=== PATIENT | male | born 1980 | race Caucasian/White ===

== ENCOUNTER 2016-04-09 10:11 | Emergency (ER) | payer OTHER, BC ==
[~2016-04-09] VITALS: Ht 188 cm; Wt 97.5 kg
--- NOTE | 2016-04-09 11:16 | ED General ---
General Chief Complaint: Chest Wall/Rib Pain Stated Complaint: BACK PAIN Nursing Triage Note: PT REPORTS RIB PAIN SINCE SUNDAY WHILE WORKING AT [employer]. HE STATES ON HE WAS ADJUSTED AT THE CHIROPRACTOR WITH SOME RELIEF. HE STATES THAT HE HAD A "COUGHING FIT" YESTERDAY AND HAS INCREASED PAIN. PT STATES HE FEELS LIKE HE HAS RIBS OUT OF PLACE. Nursing Sepsis Screen: No Definite Risk Source of Information: Patient Exam Limitations: No Limitations History of Present Illness Time Seen by Provider: 11:15 Initial Comments 35-year-old male patient presents to the emergency department with complaints of rib pain beginning on Sunday. States he was suggested by his chiropractor with some improvement in symptoms. Yesterday had a "coughing fit" with increased left rib pain. Denies congestion, shortness of air, fever, back pain. Worse with movement. Timing/Duration: 4-5 Days, Constant Modifying Factors: worse with Movement, worse with Other (worse with a deep breath.) Allergies and Home Medications Allergies Coded Allergies: No Known Drug Allergies (Unverified , 04/09/16) Home Medications Hydrocodone/Acetaminophen 1 Each Tablet #20 1 EACH PO Q4H PRN PRN PAIN Prescribed by: POOJA CORRAL on 04/09/16 1151 Orphenadrine Citrate 100 Mg Tablet.er #10 100 MG PO BID PRN PRN SPASMS Prescribed by: POOJA CORRAL on 04/09/16 1151 Prednisone 20 Mg Tab #10 40 MG PO DAILY Prescribed by: POOJA CORRAL on 04/09/16 1151 Constitutional: No chills, No fever, No malaise Respiratory: see HPINo cough, No dyspnea on exertion, No hemoptysis, No phlegm , No short of breath, No stridor, No wheezing Cardiovascular: no symptoms reported Gastrointestinal: no symptoms reported Genitourinary: no symptoms reported Musculoskeletal: see HPI other (left lower rib pain) Skin: no symptoms reported Psychiatric/Neurological: No Symptoms Reported All Other Systems Reviewed Negative Unless Noted: Yes (Negative excepted noted.) Past Mymhllv-Gfydxj-Rlaqtf Hx Patient Social History Alcohol Use: Denies Use Recreational Drug Use: No Smoking Status: Never a Smoker Recent Foreign Travel: No Contact w/Someone Who Travel: No Recent Infectious Disease Expo: No Recent Hopitalizations: No Physical Abuse Screen: No Sexual Abuse: No Seasonal Allergies Seasonal Allergies: No Surgeries HX Surgeries: Yes (ARTHROSCOPIC KNEE) Respiratory Hx Respiratory Disorders: No Cardiovascular Hx Cardiac Disorders: No Neurological Hx Neurological Disorders: No Genitourinary Hx Genitourinary Disorders: No Gastrointestinal Hx Gastrointestinal Disorders: No Musculoskeletal Hx Musculoskeletal Disorders: No Reviewed Nursing Assessment Reviewed/Agree w Nursing PMH: Yes Family Medical History Significant Family History: No Pertinent Family Hx Physical Exam Vital Signs Vital Sign - Last 12Hours 04/09/16 10:48 Temp 98.1 Pulse 80 Resp 20 B/P 134/71 Pulse Ox 97 O2 Delivery Room Air Capillary Refill : Less Than 3 Seconds General Appearance: No Apparent Distress WD/WN HEENT: PERRL/EOMI Pharynx Normal Neck: Normal Inspection Supple Respiratory: Lungs Clear Normal Breath Sounds No Respiratory Distress Other ( left lower posteriolateral ribs mildly TTP. no evidence of trauma noted. ) Cardiovascular: Regular Rate, Rhythm No Murmur Gastrointestinal: Non Tender SoftNo Distended Back: Normal Inspection No Vertebral TendernessNo Decreased Range of Motion, Muscle Spasm (left mid back with mild ttp.) Extremity: Normal Capillary Refill Normal Inspection Non Tender Neurologic/Psychiatric: Alert Oriented x3 Normal Mood/Affect Skin: Normal Color Warm/Dry Progress/Results/Core Measures Results/Orders My Orders Orders-POOJA CORRAL Cyclobenzaprine Tablet (Flexeril Tablet) (04/09/16 11:46) Hydrocodone/Apap 5/325 Tablet (Lortab 5 (04/09/16 11:46) Vital Signs/I&O Vital Sign - Last 12Hours 04/09/16 04/09/16 10:48 12:05 Temp 98.1 98.1 Pulse 80 80 Resp 20 20 B/P 134/71 Pulse Ox 97 97 O2 Delivery Room Air Blood Pressure Mean: 92 Departure Communication Progress Notes Patient seen and evaluated. Plan for discharge to home. Impression Impression: Primary Impression: Sprain of ribs, initial encounter Disposition: HOME, SELF-CARE Condition: Improved Departure-Patient Inst. Decision time for Depature: 11:49 Referrals: BULMARO GLASER MD (PCP/Family) Primary Care Physician Patient Instructions: NO INSTRUCTIONS GIVEN Add. Discharge Instructions: All discharge instructions reviewed with patient and/or family. Voiced understanding. Medications as instructed. Aleve over the counter for pain. Ice packs or heating pads as needed for pain. No lifting, pushing, pulling, twisting, bending, climbing 7 days. Follow-up with the chiropractor your choice for recheck. Follow-up with family practitioner or on patient health if no improvement in symptoms. Return to the emergency department for worsened symptoms or any other concerns. Scripts Hydrocodone/Acetaminophen (Hydrocodon -Acetaminophen 5-325)1 Each Tablet1 Each PO Q4H PRN PAIN #20 TAB Ref 0 Prov:POOJA CORRAL 04/09/16 Prednisone 20 Mg Tab40 Mg PO DAILY #10 TAB Ref 0 Prov:POOJA CORRAL 04/09/16 Orphenadrine Citrate 100 Mg Tablet.er100 Mg PO BID PRN SPASMS #10 TAB Ref 0 Prov:POOJA CORRAL 04/09/16 POOJA CORRAL Apr 09, 2016 11:15
[2016-04-09] MEDS ORDERED: HYDROcodone/APAP 5 MG/325 MG (LORTAB) TAB PO STA (11:46)
[2016-04-09] MEDS ORDERED: CYCLOBENZAPRINE 10 MG (FLEXERIL) TAB PO STA (11:46)
[2016-04-09] MEDS ORDERED: HYDR-3812 PO (11:51)
[2016-04-09] MEDS ORDERED: PRD20T PO (11:51)
[2016-04-09] MEDS ORDERED: ORPH100T PO (11:51)
[2016-04-09 12:05] VITALS: BP 134/71
== END 2016-04-09 12:05 | disposition home or self-care (01) ==
LOC: EDUNIT# 10:11 → ER 10:13
DX: S23.41XA Sprain of ribs, initial encounter (principal); X50.3XXA Overexertion from repetitive movements, initial encounter; Y99.0 Civilian activity done for income or pay
CPT/HCPCS: 99283

== ENCOUNTER → 2018-01-18 | Outpatient (CLI) | payer BC, OTHER ==
[~2018-01-18] MED LIST: ACHD5005 PO; ORPH100T PO; PRD20T PO
--- NOTE | 2018-01-18 16:03 | Diagnostic Imaging Report ---
PROCEDURE: MRI left joint lower extremity without contrast. TECHNIQUE: Multiplanar, multisequence [id number] MRI of the left lower extremity was accomplished. INDICATION: Knee pain. COMPARISON: There are no prior studies available for comparison. FINDINGS: On the proton-dense fat-saturated sagittal series, there is a linear band of increased signal extending through the inferior articular surface of the posterior horn of the medial meniscus. This would be consistent with a tear. Furthermore, there is a sizable area of abnormal signal involving the anterior horn of the lateral meniscus, and I suspect that this portion of the meniscus is torn as well. There is also a band of increased signal extending through the mid portion of the posterior horn of the lateral meniscus. This may be secondary to mucoid degeneration. The possibility that this is related to an intrasubstance tear should still be considered, however. The anterior and posterior cruciate ligaments and the quadriceps and infrapatellar tendons are intact. There is soft tissue edema along the anterior aspect of the infrapatellar tendon, however. There is also mild edema/inflammation about the medial collateral ligament, although the MCL itself seems to be intact. The fibular collateral ligament, the biceps femoris tendon, and the iliotibial band and medial and lateral retinacula show no sign of an acute abnormality. There is no abnormal signal arising from the osseous structures to indicate bone edema or a fracture. There is mild degenerative disease involving the articular surfaces of the medial and lateral femoral condyles. The patellofemoral space is also slightly narrowed. There is no evidence for a significant joint effusion. IMPRESSION: 1. Both menisci are torn. The anterior horn of the lateral meniscus is the most significantly injured. 2. The major ligaments and tendons are intact, but there is soft tissue edema along the anterior aspect of the infrapatellar tendon and about the medial collateral ligament. 3. There is no evidence for an acute bony abnormality. Dictated by: Dictated on workstation # [id number]
== END ==
LOC: RAD 13:10
PROVIDERS: ATTEND Nurse Practitioner
DX: S83.282A Other tear of lateral meniscus, current injury, left knee, initial encounter (principal); S83.242A Other tear of medial meniscus, current injury, left knee, initial encounter
CPT/HCPCS: 73721